=== PATIENT | male | born 1995 | race Asian ===

== ENCOUNTER 2017-09-21 18:27 | Emergency (ER) | payer OTHER ==
[~2017-09-21] VITALS: Ht 167.6 cm; Wt 70.8 kg
[2017-09-21 18:41] VITALS: BP 114/53
--- NOTE | 2017-09-21 18:47 | PHYS DOC ---
General Chief Complaint: EYE PROBLEMS Stated Complaint: EYE PROBLEM Time Seen by MD: 18:42 Source: patient Exam Limitations: no limitations Problems: History of Present Illness Initial Comments Patient is a 22-year-old male active duty follows at [facility] complaining of a tender bump at his left upper eyelid. Patient states that it is been there for a week and a half, he's been using warm compresses and will reduce in size but rebounds quickly. He denies any trauma no fever chills sweats or body aches, he has mildly blurred vision in the left eye he denies any corrective lenses or contacts. Immunizations are up- to-date he denies any other complaints. Visual acuity 20/13 bilaterally, 20/25 in the left eye Timing/Duration: other Severity: moderate Location: eye (L) Prearrival Treatment: other Modifying Factors: improves with other Associated Symptoms: other Allergies: Coded Allergies: No Known Drug Allergies (Unverified , 09/21/17) Past Medical History Medical History: no pertinent history Surgical History: no surgical history Social History Smoker: non-smoker Alcohol: none Drugs: none Constitutional: denies chills, denies diaphoresis, denies fever Eyes: see HPI Ears: denies dizziness, denies tinnitus Nose: denies clots, denies epistaxis Throat: denies pain, denies swelling Respiratory: denies cough, denies shortness of breath Physical Exam General Appearance: WD/WN, no apparent distress Eyes: right eye normal inspection, left eye stye (left upper eyelid), bilateral eye PERRL, bilateral eye EOMI Nose: normal inspection Mouth/Throat: normal mouth inspection, pharynx normal Neck: non-tender, supple Neurologic/Psychiatric: java architect II-XII nml as tested, alert, oriented x 3 Orders, Labs, Meds I discussed signs and symptoms to monitor as well as indications for urgent return to the department. Patient's questions were answered to his satisfaction and he expressed agreement and understanding of the treatment plan. Departure Time of Disposition: 18:46 Disposition: 01 HOME, SELF-CARE Diagnosis: Stye left upper eyelid Condition: GOOD Patient Instructions: Sty Additional Instructions: Continue warm compresses and gentle massage 4-6 times daily. [id number] Tylenol as needed. Prescription: Bacitracin ophthalmic use as directed Follow-up at [facility] tomorrow for recheck and traffic recorder or road patcher referral for incision and drainage of abscess. Return to ED with new or changing symptoms. CECILIO CAMPBELL DO Sep 21, 2017 18:47
== END 2017-09-21 19:00 | disposition home or self-care (01) ==
LOC: ER 18:27
DX: H00.014 Hordeolum externum left upper eyelid (principal)
CPT/HCPCS: 99283

== ENCOUNTER 2019-04-16 13:58 | Emergency (ER) | payer OTHER ==
[2019-04-16] MEDS ORDERED: MELO7.5T29 PO (14:16)
--- NOTE | 2019-04-16 14:17 | PHYS DOC ---
Past History Past Medical History: Depression Past Surgical History: No Surgical History Smoking: Non-smoker Alcohol Use: Occasionally Drug Use: None Adult General Chief Complaint Chief Complaint: KNEE INJURY HPI HPI Patient is a 24-year-old male presents complaining of left knee pain. This has been present for the past 3 weeks. It improved over last week but became worse again after running for PT. Patient denies any trauma. Denies any numbness or tingling. He is able to walk and run. No hip pain. No medicines have been taken. Running and movement make it worse. Holding still makes it better pain is moderate in intensity. [] Review of Systems Review of Systems Constitutional: Denies fever or chills [] Eyes: Denies change in visual acuity, redness, or eye pain [] HENT: Denies nasal congestion or sore throat [] Respiratory: Denies cough or shortness of breath [] Cardiovascular: No chest pain or palpitations[] GI: Denies abdominal pain, nausea, vomiting, bloody stools or diarrhea [] : Denies dysuria or hematuria [] Musculoskeletal: Denies back pain, see history of present illness[] Integument: Denies rash or skin lesions [] Neurologic: Denies headache, focal weakness or sensory changes [] Endocrine: Denies polyuria or polydipsia [] All other systems were reviewed and found to be within normal limits, except as documented in this note. Allergies Allergies Allergies Coded Allergies Type Severity Reaction Last Updated Verified No Known Drug Allergies 09/21/17 No Physical Exam Physical Exam Constitutional: Well developed, well nourished, no acute distress, non-toxic appearance. [] HENT: Normocephalic, atraumatic, bilateral external ears normal, oropharynx moist, no oral exudates, nose normal. [] Eyes: PERRLA, EOMI, conjunctiva normal, no discharge. [] Neck: Normal range of motion, no tenderness, supple, no stridor. [] Cardiovascular:Heart rate regular rhythm, no murmur [] Lungs & Thorax: Bilateral breath sounds clear to auscultation [] Abdomen: Not examined. [] Skin: Warm, dry, no erythema, no rash. [] Back: No tenderness, no CVA tenderness. [] Extremities: Left knee has tenderness over the IT band in the lateral portion. I ncreased pain with crossing his leg. He has full active range of motion, no effusion. No edema. No leg swelling. No varus or valgus laxity. Negative drawer, negative Azar test. A joint above and below were evaluated and were normal. The other 3 extremities show: No tenderness, no cyanosis, no clubbing, ROM intact, no edema. [] Neurologic: Alert and oriented X 3, normal motor function, normal sensory function, no focal deficits noted. [] Psychologic: Affect normal, judgement normal, mood normal. [] EKG EKG [] Radiology/Procedures Radiology/Procedures [] Course & Med Decision Making Course & Med Decision Making Pertinent Labs and Imaging studies reviewed. (See chart for details) Medical decision making: Following the [place] knee rules, there is no indication for x-ray at this time. Patient appears to have an IT band issue. There is no evidence of a fracture or dislocation. No evidence of neurologic or vascular compromise. Will have patient follow up with physical therapy for modalities to address his IT band.[] Dragon Disclaimer Dragon Disclaimer This electronic medical record was generated, in whole or in part, using a voice recognition dictation system. Departure Departure: Impression: Primary Impression: IT band syndrome Disposition: 01 HOME, SELF-CARE Condition: IMPROVED Referrals: ROHIT ELIZONDO MD (PCP) Follow-up in 2 days Additional Instructions: IT band syndrome ITBS, also known as runner's knee, happens when your iliotibial band becomes injured and causes pain. The iliotibial band is a long band of tissue. It extends from the outside of your pelvis (hip bone) to the outside of your tibia (joyner bone). It helps keeps the knee in the correct position when you stand or move. ITBS occurs most often in long distance runners and cyclists. DISCHARGE INSTRUCTIONS: Contact your healthcare provider if: You have a fever or chills. You have redness, warmth, or severe swelling. Your pain does not improve or gets worse after treatments. You have questions or concerns about your condition or care. Manage your symptoms: Rest. Do not do exercises that cause pain. You may need to rest for several weeks. Ask your healthcare provider when you can resume your normal exercises. Apply ice on your hip, knee or thigh for 15 to 20 minutes every hour or as directed. Use an ice pack, or put crushed ice in a plastic bag. Cover it with a towel. Ice helps prevent tissue damage and decreases swelling and pain. Apply heat on the area in pain for 20 to 30 minutes before your stretch or exercise. Heat helps decrease pain and makes it easier to stretch your muscles. Massage painful areas as directed. Use a foam roller to gently massage your painful areas. Place the foam roller on a flat surface. Lie on your side with the foam roller against your painful leg. Move so that it rolls up and down from your hip to above your knee. Do not lie with it against the outside of your knee cap. Stretch as directed. Stand and wrap your painful leg behind and to the side of your other leg. Reach your arm to the outside of the ankle of your painful leg. Hold for 15 seconds Return to the starting position. Do this 10 times. Repeat this exercise 3 to 5 times per day. Ask your healthcare provider or physical therapist for other ways to stretch. Go to physical therapy as directed. Your physical therapist will teach you how to do exercises that will strengthen your hip muscles and improve your flexibility. Prevent ITBS: Slowly increase the time and distance that you run or bike. Start with short runs or cycle rides. Ask your healthcare provider how and when to increase your distance and time that you exercise. Do not run down hills or stairs. When your healthcare provider says it is okay to exercise, run on flat surfaces only. [place] and stairs may cause pain and make your condition worse. Warm up and stretch before vigorous exercise or sports. Change the seat height or foot position of your bicycle. Ask your physical therapist what the correct height and foot position of your bicycle should be. Make these changes to decrease the stress on your iliotibial band. Use correct body position when you exercise. Ask your healthcare provider or physical therapist how to move your legs and feet when running or cycling. This may decrease the stress on your iliotibial band. Wear supportive shoes or orthotics. Orthotics are cushions that are placed inside of your shoes or sneakers. You may need orthotics in your running shoes if the bottom of your feet do not curve or arch enough off of the floor. Ask your healthcare provider if you need orthotics. Scripts Meloxicam (MELOXICAM) 7.5 Mg Tablet 7.5 MG PO DAILY for PAIN, #20 TAB Prov: AUDREY BURGOS DO 04/16/19 Problem Qualifiers Primary Impression: IT band syndrome Laterality: left Qualified Codes: M76.32 - Iliotibial band syndrome, left leg AUDREY BURGOS DO Apr 16, 2019 14:17
[2019-04-16 14:35] VITALS: BP 98/46
== END 2019-04-16 14:35 | disposition home or self-care (01) ==
LOC: ER 13:58
DX: M76.32 Iliotibial band syndrome, left leg (principal); F32.9 Major depressive disorder, single episode, unspecified
CPT/HCPCS: 99283